=== PATIENT | female | born 2000 | race Caucasian/White ===

== ENCOUNTER 2020-02-19 15:30 | Observation (INO) | payer BC, OTHER ==
--- NOTE | 2020-02-19 18:10 | NUR ---
BOTH NARES SWABBED FOR COVID-19 WITHOUT COMPLICATION. SAMPLE TAKEN TO [facility] FOR RAPID TESTING.
== END 2020-02-20 09:38 | disposition short-term general hospital (02) ==
LOC: FBCO 15:30 → FBC 17:20 → FBCO 17:30 → FBC 02-20 09:38
PROVIDERS: ADMIT General Practice; ATTEND General Practice
DX: O47.03 False labor before 37 completed weeks of gestation, third trimester (principal); O26.873 Cervical shortening, third trimester; Z3A.30 30 weeks gestation of pregnancy; Z20.828 Contact with and (suspected) exposure to other viral communicable diseases
CPT/HCPCS: 51702; 76815; 76817; 81001; 82731; 85025; 87088; 96372; 96374; C9803; G0378; J0702; J3105; U0003